=== PATIENT | female | born 1940 | race Caucasian/White ===

== ENCOUNTER 2016-08-24 15:08 | Inpatient (IN) ==
[2016-08-24] MEDS ORDERED: NS 1,000 ML IV ONE (15:47)
[2016-08-24] MEDS ORDERED: ATIVAN IV ONE (15:47)
[2016-08-24 16:37] LABS: AGAP 18; ALKALINE PHOSPHATASE 115 U/L (32-104); AMYLASE 88 U/L (20-200); BUN 16 mg/dL (8-22); CALCIUM 7.7 mg/dL (8.8-10.2); CHLORIDE 105 mmol/L (98-107); COSMO 288; GOT 33 U/L (10-30); GPT 30 U/L (10-36); LIPASE 29 U/L (13-60); POTASSIUM 2.8 mmol/L (3.5-5.1); SODIUM 143 mmol/L (136-145); TCO2 21 mmol/L (25-35); TOTAL PROTEIN 6.5 g/dL (6.3-8.3)
[2016-08-24] MEDS ORDERED: MAGNESIUM SULFATE 2 GM/S.W.I. 2 GM/50 ML IVPB IV ONE (16:37)
[2016-08-24] MEDS ORDERED: KLOR-CON PO ONE (16:37)
[2016-08-24 16:39] LABS: BASO% 0.1 % (0.0-0.8); HEMATOCRIT 34.8 % (37.0-47.0); HEMOGLOBIN 12.5 g/dL (12.0-16.0); IMM GRAN# 0.03 X1000 (0.0-0.04); IMM GRAN% 0.3 % (0.0-0.5); LYMPH# 0.65 X1000 (1.2-3.4); LYMPH% 6.1 % (20.5-51.1); MANUAL DIFF NEEDED? NO; MCH 32.7 PG (27-31); MCHC 35.9 g/dL (33-37); MCV 91.1 FL (81-99); MONO% 3.7 % (1.7-9.3); MPV 9.5 FL (7.4-10.4); NEUT% 89.8 % (42.2-75.2); PLT 197 X1000 (130-400); RBC 3.82 XMIL (4.2-5.4)
[2016-08-24 16:40] LABS: MAGNESIUM 0.7 mg/dL (1.5-2.7)
--- NOTE | 2016-08-24 16:54 | Diag Imaging Result Document ---
PROCEDURE NAME: FLAT/UPRIGHT ABD/1 VIEW CHEST - 08/24/2016 ACUTE ABDOMINAL SERIES: INDICATION: Nausea, vomiting, abdominal pain. FINDINGS: There is a right PICC catheter with its tip in the superior vena cava. There is cardiomegaly. No acute infiltrates or free air. There is a spinal cord stimulator device. There are surgical clips right upper quadrant and pelvis. The bowel gas pattern is nonobstructive. IMPRESSION: Nonspecific abdominal series.
--- NOTE | 2016-08-24 17:48 | PROVIDER DOCUMENTATION ---
This chart was entered by Shanna Veronica Scribe, acting as scribe for Santhosh Magallanes MD. HPI-General Adult - General Chief Complaint: Nausea/Vomiting Stated Complaint: vomting/withdrawal Time Seen by Provider: 08/24/16 15:24 Source: patient Allergies/Adverse Reactions: Patient Allergies Allergy/AdvReac Type Severity Reaction Status Date / Time codeine [Codeine] Allergy ITCHING Verified 08/24/16 15:13 Home Medications: Home Medication List Medication Instructions Recorded Confirmed Last Taken Type Alprazolam [Xanax] 0.5 mg PO TID #0 tablet 03/03/12 07/19/13 07/18/13 21:00 Rx Mirtazapine [Remeron] 30 mg PO QHS #0 tablet 03/03/12 07/19/13 07/18/13 21:00 Rx Omeprazole 20 mg PO DAILY #0 capsule. 03/03/12 07/19/13 07/19/13 07:00 Rx Ondansetron HCl [Zofran] 4 mg PO Q8H PRN PRN #0 tablet 03/03/12 07/19/13 21:00 Rx Diltiazem HCl [Cardizem] 120 mg PO BID #0 tablet 04/04/12 07/19/13 07/19/13 07: 00 Rx Furosemide [Lasix] 20 mg PO DAILY 05/23/12 07/19/13 07/19/13 07:00 History Diphenoxylate/Atropine [Lomotil] 1 each PO 3-4XDAY PRN PRN 07/19/13 07/19/13 07:00 History - History of Present Illness -Gen Adult Nature of Presenting Problems: 76 yof presents to ed with nausea and vomiting. Pt and daughter states she is going through withdrawal of morphine pump for chronic back pain that ended yesterday.Pt states she has taken suppository phenergan and was given zofran by amb and nothing is helping vomiting. Location of Pain/Injury: reports: abdomen Pain Radiation: reports: no radiation Quality of Pain: reports: aching Severity: reports: moderate Onset/Duration: reports: 24 hours ago Timing: reports: still present Context/Activities at Onset: reports: none Modifying Factors: improves with: nothing Associated Symptoms: reports: nausea, vomiting. denies: diarrhea Similar Symptoms Previously?: No Recently seen or treated by another doctor?: No Review of Systems - Adult - REVIEW OF SYSTEMS - ADULT Constitutional: reports: chills, fatique. denies: fever Eyes: reports: no symptoms reported Ears, Nose, Mouth & Throat: reports: no symptoms reported Cardiovascular: reports: no symptoms reported Respiratory: reports: no symptoms reported Gastrointestinal: reports: abdominal pain, nausea, vomiting Genitourinary: reports: no symptoms reported Musculoskeletal: reports: no symptoms reported Integumentary: reports: no symptoms reported Neurological: reports: no symptoms reported Psychiatric: reports: no symptoms reported Endocrine: reports: no symptoms reported Hematologic/Lymphatic: reports: no symptoms reported Allergic/Immunologic: reports: no symptoms reported All Other Systems: Reviewed and Negative Past History - Adult - PAST MEDICAL HISTORY-ADULT Review of Records: reports: Old Records Reviewed, Nursing Assessment Review Major Childhood Illnesses: reports: denies history Gastrointestinal: reports: cancer (colon) Other Conditions: reports: other cancer (skin) - PRIOR SURGERIES/PROCEDURES Surgical/Procedure History: reports: cholecystectomy, hysterectomy, other ( colon resection) - IMMUNIZATION STATUS Childhood Immunizations: See Nurse Assessment Flu Vaccine: See Nurse Assessment - SOCIAL HISTORY Smoking: non-smoker Living Situation: family Physical Exam-General - PHYSICAL EXAM-ADULT Initial Vital Signs Reviewed: Yes - CONSTITUTIONAL General Appearance: alert, mild distress - EYES Eyes: PERRL/EOMI, pink conjunctivae, fundi clear, no AV nicking - HEAD, EARS, NOSE, MOUTH & THROAT HENMT: normocephalic/atraumatic, moist mucous membranes, normal ENT inspection - NECK Neck: non-tender, full range of motion, supple, normal inspection - RESPIRATORY Respiratory: chest non-tender, lungs clear, normal breath sounds, no pleuratic chest pain, no respiratory distress, no accessory muscle use - CARDIOVASCULAR Cardiovascular: normal peripheral pulses, regular rate, rhythm, no edema, no gallop, no JVD, no murmur - GASTROINTESTINAL (ABDOMEN) Abdominal Exam: normal bowel sounds, soft, no organomegaly, no pulsatile mass, tenderness - LYMPHATIC Lymphatic: no adenopathy - MUSCULOSKELETAL Back Exam: normal inspection, no CVA tenderness, no vertebral tenderness Extremity: normal range of motion, normal inspection, no pedal edema, no calf tenderness, normal capillary refill, tenderness (abd general) - SKIN Integumentary: warm/dry, pallor - NEUROLOGIC 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: 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 nml as tested, grossly normal, no motor/sensory deficits - PSYCHIATRIC Psych/Mental Status: normal mood/affect, normal thought content, normal thought process, oriented x 3 Progress - PLAN OF CARE/RESULTS Progress/Plan/Lab Results: Vital Signs - 8 hr 08/24/16 15:11 Temperature 97.4 F L Pulse Rate 81 Respiratory Rate 17 Blood Pressure 149/60 O2 Sat by Pulse Oximetry 100 Orders Category Date Time Status Saline Loc DIRECTED Care 08/24/16 15:47 Active NPO Diet 08/24/16 15:47 Active FLAT/UPRIGHT ABD/1 VIEW CHEST [RAD] Stat Exams 08/24/16 15:47 Ordered AMYLASE [CHEM] Stat Lab 08/24/16 15:47 Ordered CBC WITH ELECTRONIC DIFF [HEME] Stat Lab 08/24/16 15:47 Ordered COMPREHENSIVE METABOLIC PANEL [CHEM] Stat Lab 08/24/16 15:47 Ordered LIPASE [CHEM] Stat Lab 08/24/16 15:47 Ordered MAGNESIUM [CHEM] Stat Lab 08/24/16 15:47 Ordered TROPONIN T Stat Lab 08/24/16 15:[address] W/POSS RFLX CULT [URINALYSIS] Stat Lab 08/24/16 15:47 Uncollected 0.9% Sodium Chloride Inj [Ns] 1,000 ml Med 08/24/16 15:47 Active IV 500 mls/hr Lorazepam [Ativan] Med 08/24/16 15:47 Discontinued 1 mg IV NOW ONE Result Diagrams: 08/24/16 15:55 08/24/16 15:55 - CONSULTS/PCP/HOSPITALIST Notification Time Discussed: 17:47 Reason/Comments: Admit to Dr. Stockton Consult Disposition: Admit Departure - Departure Time of Disposition Decision: 17:46 DIAGNOSIS: Narcotic withdrawal, Hypomagnesemia, Hypokalemia Disposition: ADMITTED INPATIENT 09 Certified Medical Emergency: Emergent Condition: Stable Referrals and Follow-Ups: Greta Singer MD [Primary Care Provider] - Attestation - Physician/ DAREN Attestation Patient care was provided by Advanced Practice Provider:: Yes Advanced Practice Provider:: Santhosh Magallanes Advanced Practice Provider documentation review:: The Mid-level provider documentation, treatment plan and medical decision making was reviewed by the physician who agrees with all treatment and medical decision making by the MLP. This chart was documented by the indicated scribe, (Shanna Veronica Scribe) and accurately reflects the services I performed and decisions made by me, Santhosh Magallanes MD, as attested by the provider's signature.
[2016-08-24 17:51] LABS: URINE CULTURE PL NEEDED? NO
[2016-08-24 17:52] LABS: BILIRUBIN URINE NEGATIVE (NEGATIVE); CLARITY CLEAR (CLEAR); COLOR YELLOW; GLUCOSE URINE NEGATIVE (NEGATIVE); URINE EPITHELIAL CELLS <10 /HPF (<10); URINE RBC <10 /HPF (<10); URINE SOURCE CATH; URINE WBC <10 /HPF (<10)
[2016-08-24 19:23] LABS: BLOOD URINE 1+ (NEGATIVE); LEUKOCYTES URINE 1+ (NEGATIVE); NITRITE URINE NEGATIVE (NEGATIVE); PROTEIN URINE TRACE mg/dL (NEGATIVE); UROBILINOGEN URINE NORMAL
[2016-08-25] MEDS: ZOFRAN IV PRN ×3 (00:12→11:39)
[2016-08-25 08:16] LABS: HEMATOCRIT 36.8 % (37.0-47.0); HEMOGLOBIN 13.3 g/dL (12.0-16.0); MCH 32.8 PG (27-31); MCHC 36.1 g/dL (33-37); MCV 90.6 FL (81-99); MPV 9.6 FL (7.4-10.4); RBC 4.06 XMIL (4.2-5.4)
[2016-08-25 08:55] LABS: AGAP 23; ALBUMIN 4.2 g/dL (3.5-5.0); ALKALINE PHOSPHATASE 133 U/L (32-104); BUN 10 mg/dL (8-22); CALCIUM 7.4 mg/dL (8.8-10.2); CHLORIDE 97 mmol/L (98-107); COSMO 276; GOT 65 U/L (10-30); GPT 39 U/L (10-36); SODIUM 138 mmol/L (136-145); TCO2 18 mmol/L (25-35); TOTAL PROTEIN 6.9 g/dL (6.3-8.3)
[2016-08-25 09:00] LABS: POTASSIUM 2.4 mmol/L (3.5-5.1)
--- NOTE | 2016-08-25 10:24 | HISTORY AND PHYSICAL ---
PRIMARY CARE PHYSICIAN: Dr. Singer CHIEF COMPLAINT: Nausea and vomiting. 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 She presented to the ER with nausea and vomiting stating that she was going through withdrawal as she has been on a morphine pump for 8 years and her pump evidently emptied and was supposed to be empty on the morning of the . She had been given fentanyl patches and she had actually started the patches in the morning prior to coming to the emergency room knowing that this was not take effect for quite some time. She does have chronic diarrhea and she stated that it was as usual. This had not changed. In the emergency room she was found to have a potassium of 2.8 with a magnesium of 0.7. She was supplemented and admitted for further evaluation and treatment. PAST MEDICAL HISTORY: Chronic back pain, colon cancer status post colon resection with a resulting short-bowel syndrome. Skin cancer. Chronic opioid use. PAST SURGICAL HISTORY: Cholecystectomy, hysterectomy, colon resection and back surgery. SOCIAL HISTORY: She denies alcohol, tobacco, or illicit drug use. She is . Lives with her . ALLERGIES: Codeine, which causes itching. HOME MEDICATIONS: Lasix 20 mg daily. Lomotil 1, 3-4 times a day as needed. Cardizem 120 b.i.d., Xanax 0.5 t.i.d., fentanyl patch 12 mcg every 72 hours, Oakley 7.5/325 q.8 hours p.r.n. Remeron 30 mg at bedtime. Omeprazole 20 daily. Zofran 4 q.8 hours p.r.n. REVIEW OF SYSTEMS: A 14 point review of systems is discussed with patient with pertinent positives stated in the HPI. She denies chest pain, palpitations, dizziness, syncope, cough, fever, chills, recent weight loss, weight gain, any night sweats, PND, orthopnea black or bloody vomitus, black or bloody stools, hematuria, dysuria, frequency, urgency. PHYSICAL EXAMINATION: GENERAL: A 76-year-old female, who is sitting in the bed, in no distress. VITAL SIGNS: Blood pressure is 146/63 with a heart rate of 91, respirations are 18, temperature is 98.4 degrees oral with a room air saturations of 98-100%. HEENT: Head is normocephalic, atraumatic. Pupils equal, round, react to light. EOMs are intact. Sclerae anicteric. Mucous membranes moist. NECK: Supple. Trachea midline. CARDIOVASCULAR: Regular rate and rhythm. S1, S2 appreciated. PULMONARY: Breath sounds are clear. No increased work of breathing noted. GASTROINTESTINAL: Abdomen is soft, nontender, nondistended with bowel sounds in all 4 quadrants. EXTREMITIES: No clubbing, cyanosis, or edema. Calves nontender. Pulses are palpable x4. NEUROLOGIC: She is alert and oriented x3. DIAGNOSTICS: WBC is 10.6 with a hemoglobin of 12.5, hematocrit 34.8, and platelets of 197,000. Sodium is 143, potassium 2.8, BUN 16, creatinine 0.7, with a magnesium is 0.7. Abdominal x-ray revealed a PICC line with its tip in the superior vena cava, cardiomegaly, no infiltrates or free air, spinal cord stimulator device in place. Bowel gas pattern is nonobstructive. ASSESSMENT AND PLAN: 1. Nausea and vomiting. Patient states this has resolved. She has been taking in liquids with no difficulty. We will advance her diet and monitor. 2. Hypokalemia. We will repeat her labs and replete as necessary. 3. Low magnesium. As stated above, we will repeat labs and replete as necessary. 4. Chronic opioid use. The patient states that she had been on morphine pump for 8 years and that it was supposed to empty the morning of the and she had started fentanyl patches at this time. She has also been placed on Oakley 7.5 q.8 hours a week prior to this in preparation. She does state that the Fentanyl is handling her pain and she is comfortable at this time. Dictated by MK Turner for Antonio Wilson MD cc: MK Turner MD
[2016-08-25] MEDS ORDERED: TYLENOL PO PRN (11:31)
[2016-08-25] MEDS ORDERED: NS 1,000 ML ONE (11:34)
[2016-08-25] MEDS ORDERED: POTASSIUM CHLORIDE 20 MEQ/SWI 20 MEQ/100 ML IVPB IV SCH (12:00)
[2016-08-25] MEDS ORDERED: ASPIRIN ONE (14:46)
--- NOTE | 2016-08-25 14:46 | EKG Report ---
Test Performed on : 08/25/2016 2:28:07 PM Test Reason : ST elevation Blood Pressure : / mmHG Vent. Rate : 090 BPM Atrial Rate : 090 BPM P-R Int : 122 ms QRS Dur : 084 ms QT Int : 450 ms P-R-T Axes : 060 083 086 degrees QTc Int : 550 ms Sinus rhythm. with premature atrial complexes. ST elevation, consider inferolateral injury or acute infarct Prolonged QT ACUTE ID / STEMI Consider right ventricular involvement in acute inferior infarct Abnormal ECG When compared with ECG of 29-AUG-2012 18:14, Significant changes have occurred Confirmed by Johnie Canada MD ([id number]) on 09/01/2016 10:15:19 PM
[2016-08-25 14:47] VITALS: BP 150/73
[2016-08-25] MEDS ORDERED: HEPARIN IV STA (14:48)
[2016-08-25 15:45] LABS: CK INDEX 6.8 (0.0-2.5); CK-MB 64.37 ng/mL (0.0-5.0)
[2016-08-26] MEDS ORDERED: KLOR-CON PO SCH (09:00)
--- NOTE | 2016-08-26 14:21 | DISCHARGE SUMMARY ---
ADMISSION DATE: 08/24/2016 DISCHARGE DATE: 08/25/2016 DIAGNOSES: 1. Inferior ST-elevation myocardial infarction. 2. Nausea and vomiting, resolved. 3. Hypokalemia. 4. Hypomagnesemia. 5. Chronic opioid use with recent change in medication dosing. DIAGNOSTICS: On 08/24/2016 chest x-ray revealed cardiomegaly with no acute infiltrates. Abdominal series revealed no free air. A spinal cord stimulator device is noted. Surgical clips in the right upper quadrant and pelvis with bowel-gas pattern, nonobstructive. HOSPITAL COURSE: Ms. Anaya presented to the emergency room complaining of nausea and vomiting throughout the day. She is a chronic opioid patient who has had a morphine pump for the last 8 or 9 years. Two weeks ago it was decided that she would discontinue morphine pump and go to fentanyl patches. In preparation she was given prescriptions for Dryden 7.5 which she could take 3 a day, this was for 15 days, and fentanyl patch. She stated that she did take the Dryden. She continued her Xanax and her other home medications. She did place the Fentanyl patch yesterday morning prior to coming to the emergency room. She felt that she was going through withdrawal. She was given a milligram of Ativan in the emergency room and she states that her nausea and vomiting resolved. She was found to have a magnesium of 0.7 and a potassium of 2.8. These were repleted in the emergency room. Repeat labs this morning revealed a potassium of 2.4 and a magnesium of 1.3. Potassium was repleted. The patient was feeling better. In fact, she was wanting to go home. At approximately 2:[address] the [address] room noticed [address] changes on her telemetry. The patient was complaining of chest tightness, some throat tightness, as well as left shoulder. EKG showed and acute STEMI with an acute inferior infarct with reciprocal changes in V1, 2, 3. Troponin was drawn at this time and was 1.100 with a CPK of 941 and a CK-MB of 64.3. At this time she was transferred to [facility] to the director of cath lab to undergo intervention. Blood pressures remained 140-160 over 60s and 70s. She remained in a sinus rhythm, 80s to 90s. Saturations remained 98-100 on room air, although she was supplemented with 2 L nasal cannula. Her was at her bedside and he did ride with the patient to [facility]. DISCHARGE PHYSICAL EXAMINATION: Cardiovascular: Regular rate and rhythm. S1 and S2 appreciated. Pulmonary: Breath sounds are clear with no increased work of breathing noted. Gastrointestinal: Abdomen is soft, nontender, nondistended with bowel sounds in all 4 quadrants. Extremities: No clubbing, cyanosis, or edema. Calves nontender. Pulses palpable x4. Of note, the patient does have a fentanyl patch on at present. We gave no further narcotics nor benzodiazepines. DISCHARGE MEDICATIONS: P.o. medicines have been held. She was completing the last of her 40 mEq potassium run via her PICC line. She was given heparin 5000 IV as well as she chewed 4 baby aspirin prior to transfer. She is being discharged for transfer to [facility] via EMS emergency transport. Dictated by MK Turner for Antonio Wilson MD cc: MK Turner MD
== END 2016-08-25 15:00 | disposition short-term general hospital (02) ==
LOC: P.ED 15:08 → P.MEDSURG 18:40 → SUATTDRO 18:40
PROVIDERS: ATTEND Family Medicine

== ENCOUNTER 2016-09-12 09:29 | Inpatient (IN) ==
[2016-09-12] MEDS ORDERED: PHENERGAN IV ONE (10:12)
[2016-09-12] MEDS ORDERED: SODIUM CHLORIDE 0.9% INJ ONE (10:12)
[2016-09-12 10:26] LABS: MANUAL DIFF NEEDED? NO
[2016-09-12 10:28] LABS: BASO% 0.3 % (0.0-0.8); EOS# 0.04 X1000 (0.0-0.7); EOS% 0.5 % (0.0-10.0); HEMATOCRIT 41.7 % (37.0-47.0); IMM GRAN# 0.02 X1000 (0.0-0.04); IMM GRAN% 0.3 % (0.0-0.5); LYMPH# 1.85 X1000 (1.2-3.4); LYMPH% 23.6 % (20.5-51.1); MCH 32.8 PG (27-31); MCV 91.2 FL (81-99); MONO# 0.77 X1000 (0.11-0.59); MONO% 9.8 % (1.7-9.3); MPV 9.5 FL (7.4-10.4); NEUT% 65.5 % (42.2-75.2); PLT 297 X1000 (130-400); RBC 4.57 XMIL (4.2-5.4)
[2016-09-12] MEDS ORDERED: NS 1,000 ML IV ONE ×2 (10:32→12:35)
[2016-09-12 10:51] LABS: ALBUMIN 3.7 g/dL (3.5-5.0); CALCIUM 9.1 mg/dL (8.8-10.2); POTASSIUM 3.9 mmol/L (3.5-5.1); TOTAL BILIRUBIN 0.61 mg/dL (0.20-1.00); TOTAL PROTEIN 6.6 g/dL (6.3-8.3)
[2016-09-12] MEDS ORDERED: NS IV ONE (11:46)
[2016-09-12] MEDS ORDERED: PROTONIX IV ONE (11:46)
[2016-09-12] MEDS ORDERED: CLINIMIX E 4.25%-5% SOLUTION 1,000 ML IV SCH (11:47)
[2016-09-12] MEDS ORDERED: PROTONIX 80 MG in NS 80 ML IV ONE (11:56)
[2016-09-12] MEDS: PROTONIX IV ONE ×2 (12:00→12:10)
[2016-09-12] MEDS: NS IV ONE ×2 (12:00→12:10)
--- NOTE | 2016-09-12 12:30 | Diag Imaging Result Document ---
PROCEDURE NAME: CHEST-2 VIEWS - 09/12/2016 COMPARISON: 08/24/2016. FINDINGS: The right PICC line is in stable position. The lungs are grossly clear. There is no definite pleural fluid collection. Cardiac silhouette and central vasculature are grossly unremarkable. IMPRESSION: Essentially stable chest. No evidence of acute pathology.
--- NOTE | 2016-09-12 12:30 | ED EKG INTERP ---
This chart was entered by Barbara Rausch Scribe, acting as scribe for Troy Yeager MD. EKG Interpretation - EKG Time of EKG reading by physician:: 11:46 EKG Read and Signed by:: Troy Yeager EKG Interpretation (*Must complete 3 of following elements*): Abnormal Rate: 98 Rhythm: NSR QRS: other (POSS LAE, ST&T WAVE ABNORMALITY, CONSIDER INFERIOR/ANTEROLATERAL ISCHEMIA) This chart was documented by the indicated scribe, (Barbara Rausch Scribe) and accurately reflects the services I performed and decisions made by me, Troy Yeager MD, as attested by the provider's signature.
--- NOTE | 2016-09-12 12:31 | Diag Imaging Result Document ---
PROCEDURE NAME: ABDOMEN FLAT/UPRIGHT - 09/12/2016 COMPARISON: 08/24/2016. FINDINGS: There are nonspecific bowel gas and stool patterns. There are few mildly distended loops of what appear to be small bowel. Consider ileus versus low-grade partial obstruction. There are multiple metallic clips projecting over the lower abdomen and pelvis, as well as the right upper quadrant. A spinal stimulator device projects over the left lower quadrant. There is no evidence of large-volume free abdominal gas. There is no definite organomegaly. IMPRESSION: Nonspecific abdomen as detailed above.
[2016-09-12] MEDS ORDERED: NS 1,000 ML IV PRN ×2 (12:35→17:14)
--- NOTE | 2016-09-12 12:35 | PROVIDER DOCUMENTATION ---
This chart was entered by Barbara Rausch Scribe, acting as scribe for Troy Yeager MD. HPI-General Adult - General Chief Complaint: General Adult Stated Complaint: unable to eat Time Seen by Provider: 09/12/16 09:56 Source: patient Allergies/Adverse Reactions: Patient Allergies Allergy/AdvReac Type Severity Reaction Status Date / Time codeine [Codeine] Allergy ITCHING Verified 08/24/16 15:13 Home Medications: Home Medication List Medication Instructions Recorded Confirmed Last Taken Type Alprazolam [Xanax Xr] 0.5 mg PO DAILY 09/12/16 09/12/16 09/11/16 07:00 History 0.5 MG Aspirin [Ecotrin] 325 mg PO DAILY 09/12/16 09/12/16 09/12/16 07:00 History 325 MG Carvedilol 3.125 mg PO DAILY 09/12/16 09/12/16 09/11/16 07:00 History 3.125 MG Dicyclomine [Bentyl] 10 mg PO TID 09/12/16 09/12/16 09/11/16 20:00 History 10 MG Digoxin 125 mcg PO DAILY 09/12/16 09/12/16 09/11/16 07:00 History 125 MCG Duloxetine [Cymbalta] 30 mg PO DAILY 09/12/16 09/12/16 09/11/16 07:00 History 30 MG Fentanyl 12 Microgm/Hr Patch 1 each TD Q72H 09/12/16 09/12/16 09/09/16 History [Duragesic 12 Microgm/Hr Patch] 12 MCG Lisinopril 5 mg PO DAILY 09/12/16 09/12/16 09/11/16 07:00 History 5 MG Mirtazapine 30 mg PO HS 09/12/16 09/12/16 09/11/16 20:00 History 30 MG Spironolactone 25 mg PO DAILY 09/12/16 09/12/16 09/11/16 07:00 History 25 MG Sucralfate 1 gm PO TID 09/12/16 09/12/16 09/11/16 20:00 History 1 GM - History of Present Illness -Gen Adult Nature of Presenting Problems: PT IS A 76YOF PRESENTING TO THE ED C/O NAUSEA. PT STATES SHE WAS ADMITTED BC HER PCP TOOK HER OFF THE TPN AND SHE LOST AN ADDITIONAL 15-20 LBS. PT STATES SHE WAS ADMITTED RECENTLY DUE TO NARCOTIC WITHDRAWS AFTER HER DR REMOVED HER MORPHINE PAIN PUMP FOR CHRONIC BACK PAIN AND PUT HER ON FENTYNOL PATCH. PT STATES NAUSEA FOR OVER A WEEK, ANOREXIA AND INCREASED WEAKNESS. NO OTHER COMPLAINTS AT THIS TIME BUT PT IS WITH HOLDING HER MEDICAL HISTORY UNTIL SPECIFICALLY ASKED ABOUT IT. Location of Pain/Injury: reports: generalized Pain Radiation: reports: no radiation Quality of Pain: reports: aching Severity: reports: moderate Onset/Duration: reports: 1 week ago Timing: reports: still present Context/Activities at Onset: reports: light activity Modifying Factors: improves with: nothing Associated Symptoms: reports: anxiety, back/neck pain (CHRONIC BACK PAIN), fatigue, loss of appetite, malaise, nausea, weakness, trouble walking. denies: arm pain, chest pain, constipation, diarrhea, shortness of breath, swelling/ mass in abdomen, syncope Similar Symptoms Previously?: Yes Recently seen or treated by another doctor?: Yes (ADMITTED TO [facility]) Review of Systems - Adult - REVIEW OF SYSTEMS - ADULT Constitutional: reports: see HPI, chills, fatique, weight loss. denies: fever Eyes: reports: no symptoms reported Ears, Nose, Mouth & Throat: reports: no symptoms reported Cardiovascular: reports: no symptoms reported Respiratory: reports: no symptoms reported Gastrointestinal: reports: see HPI, nausea, poor appetite. denies: abdominal pain, constipation, diarrhea, vomiting Genitourinary: reports: no symptoms reported Musculoskeletal: reports: no symptoms reported Integumentary: reports: no symptoms reported Neurological: reports: no symptoms reported Psychiatric: reports: see HPI, anxiety, alcohol/drug dependence, depression, insomnia. denies: suicidal thoughts Endocrine: reports: no symptoms reported Hematologic/Lymphatic: reports: no symptoms reported Allergic/Immunologic: reports: no symptoms reported All Other Systems: Reviewed and Negative Past History - Adult - PAST MEDICAL HISTORY-ADULT Review of Records: reports: Old Records Reviewed, Nursing Assessment Review, Medications Reviewed, Social history reviewed & non-contributory. Major Childhood Illnesses: reports: denies history Cardiovascular: reports: denies history Respiratory: reports: denies history Gastrointestinal: reports: cancer (colon) Obstetrical/Gynecological: reports: denies history Genitourinary: reports: denies history Musculoskeletal: reports: denies history Neurological: reports: denies history Endocrine/Immune: reports: denies history Other Conditions: reports: other cancer (skin) - PRIOR SURGERIES/PROCEDURES Surgical/Procedure History: reports: cholecystectomy, hysterectomy, other ( colon resection) - IMMUNIZATION STATUS Childhood Immunizations: See Nurse Assessment Flu Vaccine: See Nurse Assessment - FAMILY HISTORY Family History: reviewed, not pertinent - SOCIAL HISTORY Smoking: denies, non-smoker Substance Use: none/never, denies Alcohol Use Frequency: never Living Situation: family Physical Exam-General - PHYSICAL EXAM-ADULT Initial Vital Signs Reviewed: Yes - CONSTITUTIONAL General Appearance: appears well, alert, mild distress, thin, anxious. negative : no apparent distress - EYES Eyes: PERRL/EOMI, pink conjunctivae - HEAD, EARS, NOSE, MOUTH & THROAT HENMT: normocephalic/atraumatic, moist mucous membranes, normal ENT inspection, TMs normal, pharynx normal - NECK Neck: non-tender, full range of motion, supple, normal inspection - RESPIRATORY Respiratory: chest non-tender, lungs clear, normal breath sounds, no pleuratic chest pain, no respiratory distress, no accessory muscle use - CARDIOVASCULAR Cardiovascular: normal peripheral pulses, no edema, no gallop, no JVD, no murmur , tachycardia. negative: regular rate, rhythm - GASTROINTESTINAL (ABDOMEN) Abdominal Exam: normal bowel sounds (VERY ACTIVE), non tender, soft, no organomegaly, no pulsatile mass - LYMPHATIC Lymphatic: no adenopathy - MUSCULOSKELETAL Back Exam: normal inspection, no CVA tenderness, no vertebral tenderness Extremity: non-tender, no pedal edema, no calf tenderness, normal capillary refill, pelvis stable. negative: normal range of motion, normal gait, normal inspection - SKIN Integumentary: normal turgor, warm/dry, pallor. 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 negative: normal mood/affect Progress - PLAN OF CARE/RESULTS Progress/Plan/Lab Results: Vital Signs - 8 hr 09/12/16 09:32 Temperature 97.8 F Pulse Rate 104 H Respiratory Rate 18 Blood Pressure 127/72 O2 Sat by Pulse Oximetry 98 Orders Category Date Time Status Misc. NRS Communication Order DIRECTED Care 09/12/16 10:12 Active CBC WITH ELECTRONIC DIFF [HEME] Stat Lab 09/12/16 10:10 Uncollected CMP [COMPREHENSIVE METABOLIC PANEL] [CHEM] Stat Lab 09/12/16 10:11 Uncollected UA NIMS W/REFLEX CULT [URINALYSIS] Stat Lab 09/12/16 10:11 Uncollected Promethazine [Phenergan] Med 09/12/16 10:12 Discontinued 12.5 mg IV NOW ONE Sodium Chloride 0.9% Med 09/12/16 10:12 Discontinued 10 ml INJ NOW ONE Result Diagrams: 09/12/16 10:00 09/12/16 10:00 - XRAY 1 XRAY: Bilateral XRAY Study: Chest, Abdomen (PAIN PUMP IMPLANT NOTED OTHERWISE UNREMARKABLE) - CONSULTS/PCP/HOSPITALIST Notification #1 *Consult/PCP/Hospitalist*: NYDIA Time Discussed: 11:53 Consult Disposition: Admit (ACCEPTED PT ADMISSION TO HOSPITALIST) Departure - Departure Time of Disposition Decision: 12:31 DIAGNOSIS: Narcotic withdrawal, SGS (short gut syndrome), Anorexia Myocarditis Qualifiers: Myocarditis type: idiopathic Chronicity: subacute Qualified Code(s): 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 Chronic pain Qualifiers: Chronic pain type: chronic pain syndrome Qualified Code(s): G89.4 - Chronic pain syndrome Vomiting Qualifiers: Vomiting type: unspecified Vomiting Intractability: intractable Nausea presence : with nausea Qualified Code(s): R11.2 - Nausea with vomiting, unspecified Disposition: ADMITTED INPATIENT 09 Certified Medical Emergency: Emergent Condition: Fair Referrals and Follow-Ups: Greta Singer MD [Primary Care Provider] - - Critical Care Note This patient required my direct & personal management of CC.: No This chart was documented by the indicated scribe, (Barbara Rausch Scribe) and accurately reflects the services I performed and decisions made by me, Troy Yeager MD, as attested by the provider's signature.
[2016-09-12] MEDS ORDERED: DURAGESIC 12 MICROGM/HR PATCH TD SCH (16:30)
[2016-09-12] MEDS ORDERED: BENTYL PO SCH (17:00)
[2016-09-12] MEDS: CLINIMIX E 4.25%-5% SOLUTION 1,000 ML IV SCH (17:02)
[2016-09-12] MEDS ORDERED: BENTYL PO PRN (17:14)
[2016-09-12] MEDS ORDERED: ZOFRAN IV PRN (17:15)
[2016-09-12] MEDS: CARAFATE PO SCH (18:05)
--- NOTE | 2016-09-12 18:18 | HISTORY AND PHYSICAL ---
CHIEF COMPLAINT: Intractable nausea and vomiting. HISTORY OF PRESENT ILLNESS: Ms. Anaya is a 76-year-old, female, patient of Dr. Singer with multiple medical problems, not doing well the last 2 weeks. The patient had significant nausea, at times vomiting, not able to keep anything by mouth. According to patient she lost 12- 15 pounds of weight over a month. The patient claimed every time she tries to eat she gets nauseous and at times vomiting. The patient also had some diarrhea. The patient was admitted to [facility]. At that time, her EKG showed ST elevation. The patient was sent to [facility]. She had workup done, told to have myocarditis and the patient was started on Lanoxin. Patient claims her nausea is more since she is on Lanoxin. The patient denied any typical chest pain, palpitation. Patient evaluated in the ER. Because of her intractable nausea, vomiting. Not responding to outpatient treatment. The patient was taking Zofran, but it was not helping. The patient was not able to take anything by mouth. She was losing weight. She did have clinical dehydration. We decided to admit the patient for further care, inpatient hydration and parenteral nutrition. The patient was on TPN as an outpatient before, which was discontinued about a month ago. 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 Patient does have chronic back pain. She had pain pump, but it is not functioning. Patient is on Duragesic patch. The patient claims it is not helping and she did not want me to change her fentanyl patch today. She denied any dysuria or hematuria. No blood or mucus in the stool. No hematemesis or melena. The patient claims she had upper GI endoscope done in [place] and she was told to have ulcer in her stomach. I do not have details. We are going to get records from [facility]. No heat or cold intolerance. She denied polyuria or polydipsia. Patient was feeling weak and tired. At times, situational depression. No further history available at this time. ALLERGIES: Codeine. PAST MEDICAL HISTORY: Significant for colon cancer, status post colon resection. Patient had Jhonatan's requiring multiple surgeries. Chronic back pain. The patient had a pain pump. Skin cancer. Chronic opioid use. Hypertension. Situational depression. PAST SURGICAL HISTORY: Patient had cholecystectomy, hysterectomy, colon resection and back surgery. PERSONAL HISTORY: Patient is . Lives with her . Denied alcohol or substance abuse. HOME MEDICATION: Patient is on Lanoxin, Xanax, aspirin, Coreg, Bentyl, Cymbalta, Duragesic patch, lisinopril, Remeron, Aldactone, Carafate. FAMILY HISTORY: Noncontributory. PHYSICAL EXAMINATION: GENERAL: Elderly white female patient in mild distress. VITAL SIGNS: In the emergency room, blood pressure 127/72, pulse 104, respiration 18, temperature 97.8 degrees. SKIN: Dry turgor. No rash or petechiae. HEENT: Head atraumatic, normocephalic. Pale conjunctivae. Anicteric sclerae. Extraocular muscle movement normal. Fundus cannot be penetrated. Good oral hygiene. Dry oral mucosa. No tonsillopharyngeal congestion or exudate. Ears and nose benign. NECK: Supple. No JVD, thyromegaly or lymphadenopathy. CHEST: Bilateral good air entry present. No rales or rhonchi. CARDIOVASCULAR: S1 and S2 heard. No gallop or thrill. ABDOMEN: Soft. Mild epigastric tenderness. No guarding or rigidity. Patient does have her pain pump in the left lower quadrant. EXTREMITIES: No cyanosis, clubbing. No acute DVT. 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 Tenderness lumbosacral spine. LABORATORY DATA/X-RAY: Revealed hemoglobin 15, hematocrit 41.7. Platelet count 297,000. WBC count 7.85, BUN 39, creatinine 1.4. The rest of the electrolytes were benign. Lanoxin level was 1.4. Patient chest x-ray was stable chest. Abdominal x-ray results reviewed. CONSIDERATION: Intractable nausea and vomiting. Peptic ulcer disease. Weight loss. Chronic pain. Hypertension. Short-bowel syndrome. Chronic low back pain. Situational depression. PLAN: I am going to discontinue her Lanoxin. Patient wants me to hold her Duragesic patch. Gentle hydration. We will start her on Clinimix. We will treat her nausea with IV Zofran, DVT and GI prophylaxis. Fall precaution. Overall plan discussed with the patient and and they are in agreement. Dr. Singer will resume care from tomorrow morning. cc: MD Charles Morgan MD
[2016-09-12] MEDS: REMERON PO SCH (21:05)
[2016-09-12] MEDS: XANAX XR PO SCH (21:05)
[2016-09-13 06:10] LABS: MANUAL DIFF NEEDED? NO
[2016-09-13 06:43] LABS: BASO% 0.9 % (0.0-0.8); EOS% 1.7 % (0.0-10.0); HEMATOCRIT 32.4 % (37.0-47.0); HEMOGLOBIN 11.4 g/dL (12.0-16.0); LYMPH# 2.93 X1000 (1.2-3.4); LYMPH% 50.3 % (20.5-51.1); MCH 32.8 PG (27-31); MCHC 35.2 g/dL (33-37); MCV 93.1 FL (81-99); MONO# 0.56 X1000 (0.11-0.59); MONO% 9.6 % (1.7-9.3); MPV 9.8 FL (7.4-10.4); NEUT% 37.5 % (42.2-75.2); PLT 188 X1000 (130-400); RBC 3.48 XMIL (4.2-5.4)
[2016-09-13 06:45] LABS: AGAP 9; ALBUMIN 2.9 g/dL (3.5-5.0); ALKALINE PHOSPHATASE 61 U/L (32-104); BUN 38 mg/dL (8-22); CALCIUM 8.3 mg/dL (8.8-10.2); CHLORIDE 105 mmol/L (98-107); COSMO 283; GOT 36 U/L (10-30); GPT 15 U/L (10-36); POTASSIUM 3.6 mmol/L (3.5-5.1); SODIUM 137 mmol/L (136-145); TCO2 23 mmol/L (25-35); TOTAL BILIRUBIN 0.39 mg/dL (0.20-1.00); TOTAL PROTEIN 5.2 g/dL (6.3-8.3)
[2016-09-13] MEDS: PRINIVIL PO SCH (08:15)
[2016-09-13] MEDS: COREG PO SCH (08:15)
[2016-09-13] MEDS: ALDACTONE PO SCH (08:15)
[2016-09-13] MEDS ORDERED: MAGNESIUM SULFATE 2 GM/S.W.I. 2 GM/50 ML IVPB IV ONE (08:55)
[2016-09-13] MEDS ORDERED: ASPIRIN EC PO SCH (09:00)
[2016-09-13] MEDS ORDERED: XANAX XR PO SCH (09:00)
--- NOTE | 2016-09-13 09:33 | PROGRESS NOTE ---
DATE: 09/13/2016 SUBJECTIVE: A 76-year-old white female admitted to the hospital with abdominal pain, nausea, vomiting. X-rays reviewed, possible bowel obstruction. She was also seen in [facility] recently with possible inferior wall LA. Left heart catheterization was negative. She was treated for myocarditis. She has a history of short-bowel syndrome and outpatient TPN was on hold. REVIEW OF SYSTEMS: No headache. No vision problems.Neck: No goiter. No lymphadenopathy. No bruit. Cardiopulmonary: No chest pain, shortness of breath, PND, orthopnea. GI: Had a BM this morning. Decreased belly pain. No swelling of legs. OBJECTIVE: Vital signs: She is afebrile. Blood pressure is on the low side at 90/40. Pulse oximetry 98% on room air. HEENT: Within normal limits. Neck: Supple. No lymphadenopathy. No goiter. Chest: Clear. Heart: Sounds are regular. PICC line on the right side present and she also had pain pump which is empty. Abdomen: Belly is soft. Good bowel sounds. Extremities: No peripheral edema, cyanosis, clubbing. Neurologic: Nonfocal. INVESTIGATIONS: White cell count 5.8, hematocrit 32, platelets 180,000, SMA 7 is normal. LFTs were normal. Magnesium is 1.3. Folate 1.2. Digoxin level 1.4. Abdominal x-ray and chest x-ray were reviewed. Nothing acute in the chest. Possible bowel obstruction. ASSESSMENT AND PLAN: 1. Abdominal pain due to bowel obstruction, resolving. Advanced diet and see how she does. 2. Myocarditis. Negative left heart catheterization recently. Stable. Continue on Coreg, lisinopril. 3. Short-bowel syndrome. We will resume the outpatient TPN. Consult [facility]. In the meantime continue IV Clinimix. 4. Hypomagnesemia. Mag sulfate 2 mg 1 dose. 5. Chronic insomnia. On Remeron. 6. Acid reflux disease. On IV Protonix. We will follow up. LEVEL OF DOCUMENTATION: 35 minutes. cc: Charles Singer MD
[2016-09-13] MEDS: CLINIMIX E 4.25%-5% SOLUTION 1,000 ML IV SCH (09:52)
[2016-09-13] MEDS: CARAFATE PO SCH ×4 (09:52→16:48)
[2016-09-13] MEDS: CYMBALTA PO SCH (09:52)
[2016-09-13] MEDS: XANAX XR PO SCH ×2 (09:57→19:59)
[2016-09-13] MEDS: PROTONIX IV SCH (11:57)
[2016-09-13] MEDS: SODIUM CHLORIDE 0.9% INJ SCH (11:57)
[2016-09-13] MEDS: REMERON PO SCH (19:59)
[2016-09-14] MEDS: CLINIMIX E 4.25%-5% SOLUTION 1,000 ML IV SCH ×3 (00:19→17:17)
[2016-09-14] MEDS ORDERED: HALL'S COUGH LOZENGE MT PRN (01:26)
--- NOTE | 2016-09-14 09:11 | PROGRESS NOTE ---
DATE: 09/14/2016 SUBJECTIVE: The patient is out of bed. Walking very well. No chest pain. Patient is tolerating the diet very well. No nausea, vomiting, or obstipation. In fact, she had two loose bowel movements. REVIEW OF SYSTEMS: None reported. PHYSICAL EXAMINATION: Vital Signs: Stable. Weight 98 pounds. HEENT Examination: Within normal limits. Neck: Supple. Chest: Clear. Heart: Heart sounds are regular. Abdomen: Belly is soft, nontender. Good bowel sounds. ASSESSMENT AND PLAN: 1. Myocarditis, stable. 2. Short-bowel syndrome. We will go resume the total parenteral nutrition protocol by [facility]. 3. Small-bowel obstruction. Obstipation resolving. If she continues to improve, we will discharge home in the morning. 4. Continue the present medical treatment. 5. Level of documentation is 25 minutes. cc: Charles Singer MD
[2016-09-14] MEDS: ALDACTONE PO SCH ×2 (09:27→09:28)
[2016-09-14] MEDS: COREG PO SCH (09:27)
[2016-09-14] MEDS: PRINIVIL PO SCH (09:27)
[2016-09-14] MEDS: CYMBALTA PO SCH (09:28)
[2016-09-14] MEDS: CARAFATE PO SCH ×4 (09:29→16:46)
[2016-09-14] MEDS: XANAX XR PO SCH ×2 (09:31→22:20)
[2016-09-14] MEDS: PROTONIX IV SCH (11:42)
[2016-09-14] MEDS: SODIUM CHLORIDE 0.9% INJ SCH (11:42)
[2016-09-14] MEDS: REMERON PO SCH (22:20)
[2016-09-15 08:23] VITALS: BP 119/61
[2016-09-15] MEDS: CYMBALTA PO SCH (09:05)
[2016-09-15] MEDS: CARAFATE PO SCH (09:05)
--- NOTE | 2016-09-16 19:04 | DISCHARGE SUMMARY ---
ADMISSION DATE: 09/12/2016 DISCHARGE DATE: 09/15/2016 DISCHARGING DIAGNOSES: Abdominal pain due to subacute bowel obstruction. SECONDARY DIAGNOSES: 1. Short-bowel syndrome on IV total parenteral nutrition. 2. Chronic pain under the care of Dr. Knott on fentanyl patch. 3. Myocarditis. Recently was seen in [facility]. 4. Chronic anxiety/depression. 5. Other problems: PICC line on the right side. 6. Pain pump was not using. BRIEF HISTORY: Please see the H and P that was done by Dr. Price Peters. In brief, she is a 76-year-old, pleasant, white female, with extensive colon resection for colon cancer. Presented with short-bowel syndrome on IV TPN by [facility]. Recently admitted to [facility] for elevated ST in inferior wall, suspicious for HI. Subsequently, left heart catheterization did not show any obstructive lesions. She is being treated with myocarditis. She came in with abdominal pain, nausea, vomiting, obstipation. Initial x-rays revealed possible obstruction. HOSPITAL COURSE: Patient was given IV fluids and symptomatic treatment and she started passing flatus, and able to tolerate the diet very well. She did not require any surgical consult. The patient is stable. LABS: At the time of discharge, the labs are as follows CBC: White cell count 5.8, hematocrit 32, platelets 188. SMA-7, sodium 137, potassium 3.6, chloride 105, BUN 38, creatinine 0.8. LFTs were normal. Dig level is 1.4. DISCHARGE INSTRUCTIONS: Resume total parenteral nutrition care by [facility]. Duloxetine 30 mg daily, Coreg 3.125 daily. Fentanyl patch 12 mcg every [address] Knott. Lanoxin 125 mcg daily. Xanax 0.5 daily. Remeron 30 daily. Aldactone 25 daily, Lisinopril 5 mg daily, aspirin 325 daily. Bentyl as needed for diarrhea. Follow up in my office next week. We will also will review the reports from [facility]. cc: Charles Singer MD
== END 2016-09-15 11:29 | disposition home health service (06) ==
LOC: ED 09:29 → 4N 13:31
PROVIDERS: ADMIT Internal Medicine; ATTEND Internal Medicine

== ENCOUNTER 2019-05-22 10:17 | Inpatient (IN) ==
[2019-05-22] MEDS ORDERED: PNEUMOVAX 23 IM ONE (14:16)
--- NOTE | 2019-05-22 14:27 | EKG Report ---
Test Performed on : 05/22/2019 2:20:24 PM Test Reason : chest pain Blood Pressure : / mmHG Vent. Rate : 072 BPM Atrial Rate : 072 BPM P-R Int : 188 ms QRS Dur : 090 ms QT Int : 414 ms P-R-T Axes : 039 050 -44 degrees QTc Int : 453 ms Normal sinus rhythm. ST & T wave abnormality, consider inferior ischemia ST & T wave abnormality, consider anterior ischemia Abnormal ECG When compared with ECG of 21-OCT-2017 13:20, T wave inversion more evident in Inferior leads T wave inversion now evident in Anterior leads Confirmed by Dominic IGLESIAS, Zoran Araya ([id number]) on 05/22/2019 6:16:12 PM
[2019-05-22 14:49] LABS: HEMATOCRIT 31.5 % (37.0-47.0); HEMOGLOBIN 9.7 g/dL (12.0-16.0); MCH 28.5 PG (27-31); MCHC 30.8 g/dL (33-37); MCV 92.6 FL (81-99); MPV 9.8 FL (7.4-10.4); RBC 3.4 XMIL (4.2-5.4); RDW 13.5 % (11.5-14.5); WBC 10.08 X1000 (4.8-10.8)
[2019-05-22 15:06] LABS: CALCIUM 8.7 mg/dL (8.8-10.2); CREATININE 1.4 mg/dL (0.5-0.9); POTASSIUM 3.9 mmol/L (3.5-5.1)
--- NOTE | 2019-05-22 16:37 | Diag Imaging Result Doc PS360 ---
EXAM: CT ABD/PELVIS W/IV CONT ONLY 05/22/2019 HISTORY: Abdominal pain TECHNIQUE: This exam was performed using automated exposure control, adjustment of mA or kV according to patient size, and/or use of iterative reconstruction technique. COMMENT: The current study is compared with the previous examination of 11/19/2011. There are some fibrotic opacities in the right middle lobe which were present previously as well as a calcified granuloma. There is dependent atelectasis in both lower lobes. There is a pericardial effusion which was not present at the time the previous study and which measures up to 7 mm anteriorly over the left atrium. The adrenal glands are not enlarged. There are multiple granulomata in the spleen. There is a 8 to 9 mm cyst in the left hepatic lobe which was also present at the time the previous study. The adrenal glands are not enlarged. There is a multilocular cystic mass in the head of the pancreas. This is larger than on the previous examination at which time it measured 14 mm in anterior posterior dimension versus 2.8 cm today. There is mild dilatation of the distal pancreatic duct to 4 mm. There has been cholecystectomy. The distal common bile duct measures 7 mm in diameter. There are some cysts in the right kidney. There is no evidence of hydronephrosis. There is some stool in the colon. The stomach is not distended. There has been previous colonic resection as well as appendectomy. There is stool in the rectum. The small bowel is not particularly distended. The aorta is not distended. There is no evidence of significant adenopathy. The urinary bladder is not distended. There is some generalized osteopenia and there are postsurgical changes and degenerative disc changes in the lumbar spine. IMPRESSION: 1. 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 Further evaluation with MRI may be desirable. 2. Constipation. 3. Pericardial effusion. Electronically signed by Ta Huff 05/22/2019 4:35 PM
[2019-05-22 18:28] LABS: URINE SOURCE CLEAN CATCH
[2019-05-22 18:35] LABS: BILIRUBIN URINE NEGATIVE (NEGATIVE); BLOOD URINE SMALL (NEGATIVE); COLOR YELLOW; GLUCOSE URINE NEGATIVE (NEGATIVE); KETONE URINE NEGATIVE (NEGATIVE); LEUKOCYTES URINE MODERATE (NEGATIVE); NITRITE URINE NEGATIVE (NEGATIVE); PROTEIN URINE 30 mg/dL (NEGATIVE); SP GRAVITY URINE 1.048; TURBIDITY URINE CLEAR (CLEAR); UROBILINOGEN URINE NORMAL (NORMAL)
[2019-05-22 18:39] LABS: UR EPITHELIAL CELLS <10 /HPF (<10); URINE BACTERIA NEGATIVE /HPF; URINE WBC 20-40 /HPF (<10)
[2019-05-22 18:45] LABS: URINE CASTS NONE SEEN; URINE YEAST NONE SEEN
[2019-05-22 18:46] LABS: URINE CRYSTALS CA OXALATE PRESENT; URINE SMALL ROUND CELLS TRANS PRESENT
--- NOTE | 2019-05-22 21:22 | GASTROENTEROLOGY CONSULTATION ---
DATE: 05/22/2019 REASON FOR CONSULTATION: Abdominal pain. HISTORY OF PRESENT ILLNESS: This is a 79-year-old female known to our practice. She follows with Dr. Singer. She had seen him yesterday in the office. She had some recent breathing issues that she related to her congestive heart failure. She states she was seen at the clinic through Dr. Singer. She was found to have anemia, which she has had in the past. She denies any visible bright red blood in the stool but has noticed some dark stool on occasion. She reports weakness. She had some shortness of breath and chest pain but that has improved. She has denied dizziness or lightheadedness. She reports periodic abdominal pain. She does have a pain pump to the left lower quadrant. She states periodically she will have a knot come up around the pain pump site. It moves around and comes and goes. She had abdominal pelvis CT scan this admission that showed an apparent cystic neoplasm of the pancreatic head, constipation and pericardial effusion. Her hemoglobin and hematocrit on admission were 9.7 and 31.5, iron 24. PAST MEDICAL HISTORY: Colon cancer diagnosis in 1998, history of colectomy, history of heart disease and history of myocardial infarction, history of congestive heart failure, stroke. PAST SURGICAL HISTORY: History of colectomy, back surgery, cholecystectomy, hysterectomy. Last EGD and colonoscopy were in July of 2017 with findings of normal EGD, noted surgical changes and anal stenosis with dilation performed. She also has a pain pump at the left lower quadrant. ALLERGIES: Codeine causing itching. HOME MEDICATIONS: Carvedilol 6.25 mg twice a day, digoxin 125 mcg daily, Cymbalta 60 mg daily, ezetimibe/simvastatin 10/40 mg every night, Gabapentin 300 mg twice a day, mirtazapine 30 mg every night, Prilosec twice daily, Zofran as needed, Crivitz 5/325 three times a day, spironolactone 25 mg daily, Gattex 5 mg subcutaneous daily. SOCIAL HISTORY: She is . She has 1 child living and 3 . No alcohol or tobacco use. She quit tobacco use. REVIEW OF SYSTEMS: Per history of present illness. PHYSICAL EXAMINATION: Vital Signs: Temperature 97.9 degrees, pulse 73, respirations 17, blood pressure 113/43. General: Patient was awake and alert in no acute distress. HEENT: Normocephalic, atraumatic. Pupils equal, round, and reactive to light. Sclerae nonicteric. Respiratory: Lung sounds essentially clear. Abdomen: With a midline scar from her history of colon resection. She has a pain pump to the left lower quadrant. No elicited abdominal pain with palpation. Bowel sounds present. Extremities: No lower extremity edema noted. Neurological: Cranial nerves 2 through 12 grossly intact. Patient is awake, and alert, oriented to person, place, and time. DIAGNOSTIC RESULTS: Laboratory: Hematology: WBC 10.08, hemoglobin 9.7, hematocrit 31.5. Chemistry: Sodium 139, potassium 3.9, chloride 95, CO2 29, BUN 16, creatinine 1.1, glucose 98, calcium 8.7, iron 24, TIBC 283, ferritin 120, folate 24.4. Imaging: Abdominal pelvis CT scan showed apparent cystic neoplasm of the pancreatic head, constipation and pericardial effusion. ASSESSMENT: 1. Abdominal pain. 2. Anemia. 3. Abnormal CT scan showing questionable cystic neoplasm of the pancreatic head. PLAN: Get CA 19-9. Patient may need MRI of abdomen for further evaluation. Proceed with EGD for evaluation of anemia. I have gone over the benefits versus risks of EGD procedure and patient wishes to proceed. I have discussed this case with Dr. Acuna, and further plans will be made according to findings. Thank you for this consultation. Dictated by MK Catsaneda for Ryan Acuna MD cc: MK Monson MD Jagan Reddy, MD [facility]
[2019-05-22] MEDS: ZETIA PO SCH (21:55)
[2019-05-22] MEDS: ZOCOR PO SCH (21:55)
[2019-05-22] MEDS: REMERON PO SCH (21:55)
[2019-05-22] MEDS: NEURONTIN PO SCH (21:55)
--- NOTE | 2019-05-22 23:04 | HISTORY AND PHYSICAL ---
CHIEF COMPLAINT: 1. Shortness of breath. 2. Fatigue. 3. Upper abdominal pain. 4. Swelling of legs. HISTORY OF PRESENT ILLNESS: She is a 79-year-old white female who came in my office on Tuesday with the above symptoms. Chest x-ray showed cardiomegaly with pleural effusion on the right side. She also has intermittent atrial fibrillation. She is on Coumadin under the care of Dr. Khoury. She was given Lasix. CBC showed hemoglobin 7, hematocrit 24. The patient refused to go to the hospital, and then came back on Tuesday. Symptoms of breathing are better, however, continues to have some abdominal pain, fatigue and weakness. She has a pain pump in the left lower quadrant. Repeat CBC showed white cell count 14, hematocrit 30. Options were discussed. I recommended to see Dr. Acuna as an outpatient. Nevertheless, she returned to the office today. She was not getting better last night. As a result, she has been hospitalized for all this workup. PAST MEDICAL HISTORY: 1. Chronic pain syndrome, off of pain pump. 2. Colon cancer resection of the colon by Dr. Gayle in 1998. 3. History of diastolic heart failure, paroxysmal atrial fibrillation, on Coumadin. 4. History of gastric erosions. 5. 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 6. Hyperlipidemia. 7. Hypertension. PAST SURGICAL HISTORY: Small-bowel resection due to adhesions, pain pump on the left side of the abdomen, status post C-spine surgery, removal of Bean catheter and PICC line, cholecystectomy, hysterectomy. MEDICATIONS: Cymbalta 60 daily, Coreg 6.25 p.o. b.i.d., Lanoxin 125 daily, Remeron 30 daily, Aldactone 25 daily, Percocet 5 t.i.d., Prilosec 20 p.o. b.i.d., Gattex 5 mg subcutaneous daily, Vytorin 10/40 daily gabapentin 300 p.o. b.i.d. Patient also taking Coumadin by Dr. Khoury, 3 mg, 1 tablet and 1/2 tablet on alternate days. Last Coumadin test 1.7 on 05/21/2019. ALLERGIES: Reported to codeine. HEALTH MAINTENANCE: Pneumococcal vaccine 13 was given in 2018. Flu vaccine declined. Last mammography 05/2018. DEXA scan in 02/2016. Colonoscopy in 03/[address] Acuna. REVIEW OF SYSTEMS: HEENT: No headache, no vision problem. No earache. No sore throat. Neck: No goiter. No lymphadenopathy. No bruit. Cardiopulmonary: No chest pain, shortness of breath, PND or orthopnea. His symptoms are improved. No swelling. GI: Upper abdominal pain and nausea. No constipation. No bleeding per rectum. : No history of hesitancy, frequency, dysuria. No neurological symptoms or weakness. PHYSICAL EXAMINATION: VITAL SIGNS: Temperature is 97.9 degrees, pulse 73. Vital signs are stable. GENERAL: Five feet tall, 155 pounds. HEENT: Very pale. No jaundice. TMs are normal. Nose and throat within normal limits. NECK: Supple. No lymphadenopathy. JVD is decreased. CHEST: Bilateral air entry. HEART: Sounds are regular. No murmurs. Belly is soft, nontender. Pain pump was placed on the left side. No signs of peritonitis. EXTREMITIES: No peripheral edema or cyanosis. NEUROLOGIC: No obvious neurological deficits. LABORATORY DATA: White cell count 10, hematocrit 31.5, platelets 474,000. Creatinine 1.4, calcium 8.7. Anemia profile is normal. Urinalysis is negative. ASSESSMENT AND PLAN: 1. A 79-year-old white female admitted to the hospital with the recent exacerbation of congestive heart failure, improving after Lasix with underlying paroxysmal atrial fibrillation. Electrocardiogram: Normal sinus, nothing acute. Last echocardiography was done 10/21/2017; normal left ventricular systolic function. Chest x-ray showed cardiomegaly. We will follow up on echocardiography. Currently on Coreg, Lanoxin, Coumadin and Aldactone. Lasix was given. We will hold the Lasix because the creatinine is 1.4. 2. Anemia, fluctuating. Get stool for testing. 3. History of colon resection. Last colonoscopy in [address] Acuna. 4. Short-bowel syndrome. History of total parenteral nutrition, which has been discontinued after starting Gattex injection. Side effects explained. Basically gallstones and colon polyps. The patient had a cholecystectomy done. 5. Upper abdominal discomfort. Follow up on CT scan of the abdomen and pelvis. 6. Hyperlipidemia, on Vytorin 10/40 daily. 7. 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 8. Insomnia, weight gain, on Remeron 30 mg at bedtime. 9. Acid reflux disease from previous erosions, on Prilosec 20 mg p.o. b.i.d. We will get stool testing and also a Gastroenterology consult. We will follow up on the pending labs. cc: Charles Singer MD MTDD
[2019-05-23] MEDS: PERCOCET-5 PO SCH ×4 (05:16→20:51)
--- NOTE | 2019-05-23 07:28 | Diag Imaging Result Doc PS360 ---
EXAM: CHEST-2 VIEWS INDICATION: hypoxia TECHNIQUE: 2 views COMPARISON: 02/26/2019 FINDINGS: There is evidence of prior granulomatous disease, stable. There is stable mild linear scarring in the right lower lung zone. There is no discrete pleural fluid collection or pneumothorax. The cardiomediastinal silhouette and central vasculature are grossly unremarkable. IMPRESSION: Stable mild scarring at the right lower lung zone. No definite acute chest pathology, otherwise. Electronically signed by Josiah Ayala 05/23/2019 7:26 AM
[2019-05-23] MEDS: LANOXIN PO SCH (08:58)
[2019-05-23] MEDS: NEURONTIN PO SCH ×2 (08:58→20:50)
[2019-05-23] MEDS: ALDACTONE PO SCH (08:59)
[2019-05-23] MEDS: CYMBALTA PO SCH (08:59)
[2019-05-23] MEDS: PRILOSEC PO SCH ×2 (08:59→20:51)
[2019-05-23] MEDS: COREG PO SCH ×2 (08:59→20:49)
[2019-05-23] MEDS: PATIENT'S OWN MED SUBQ SCH (09:00)
[2019-05-23] MEDS: ZOFRAN IV PRN ×2 (10:15→20:57)
[2019-05-23 10:27] LABS: INR 1.26
[2019-05-23 10:44] LABS: ALB/GLOB RATIO 0.9; ALBUMIN 3.1 g/dL (3.5-5.0); CALCIUM 8.3 mg/dL (8.8-10.2); CREATININE 1.1 mg/dL (0.5-0.9); POTASSIUM 3.7 mmol/L (3.5-5.1); TOTAL BILIRUBIN 0.38 mg/dL (0.20-1.00); TOTAL PROTEIN 6.5 g/dL (6.3-8.3)
[2019-05-23 11:16] LABS: BASO# 0.05 X1000 (0.0-0.2); BASO% 0.6 % (0.0-0.8); EOS# 0.05 X1000 (0.0-0.7); EOS% 0.6 % (0.0-10.0); HEMATOCRIT 27.9 % (37.0-47.0); HEMOGLOBIN 8.4 g/dL (12.0-16.0); IMM GRAN# 0.02 X1000 (0.0-0.04); IMM GRAN% 0.3 % (0.0-0.5); LYMPH# 1.44 X1000 (1.2-3.4); LYMPH% 18.5 % (20.5-51.1); MCHC 30.1 g/dL (33-37); MONO# 0.51 X1000 (0.11-0.59); MONO% 6.6 % (1.7-9.3); MPV 9.5 FL (7.4-10.4); NEUT# 5.71 X1000 (1.4-6.5); NEUT% 73.4 % (42.2-75.2); PLT 439 X1000 (130-400); RDW 13.1 % (11.5-14.5); WBC 7.78 X1000 (4.8-10.8)
[2019-05-23] MEDS: CYANOCOBALAMIN IM SCH (14:49)
--- NOTE | 2019-05-23 16:18 | ECHO REPORT ---
ORDER DATE: 05/22/2019 INTERPRETING PHYSICIAN: Dr. Aris Khoury. ECHOCARDIOGRAPHIC MEASUREMENTS: 1. Interventricular septum: 0.9 cm. 2. Left ventricular posterior wall: 0.9 cm. 3. Diastolic diameter: 3.6 cm. 4. Left atrium: 3.0 cm. 5. Aorta: 2.6 cm. SUMMARY OF THE 2-DIMENSIONAL IMAGIN. Aortic valve leaflets were trileaflet. 2. Normal right ventricular cavity size and function. 3. Normal left ventricular cavity size. 4. Estimated ejection fraction of 70%. 5. Mitral valve was normal. 6. Tricuspid valve was normal. 7. There is left atrial enlargement. 8. There is mild mitral regurgitation. 9. There is grade 1 diastolic dysfunction. 10. There is mild mitral regurgitation. 11. Mild tricuspid regurgitation. 12. Peak velocity across the tricuspid valve was 2.5 meters per second. 13. Pulmonary artery systolic pressure of 35 to 39 mmHg. 14. Peak velocity across the aortic valve less than 2 meters per second. 15. By Doppler studies, there is no aortic stenosis or regurgitation. 16. There is no pericardial effusion or obvious intracardiac mass or thrombus seen. 17. Anterior echo-free space suggestive of pericardial fat pad noted. cc: MD Charles Ibarra MD
--- NOTE | 2019-05-23 17:02 | ENDOSCOPY OPERATIVE NOTE ---
[facility] ENDOSCOPY OPERATIVE NOTE , EGD PROCEDURE REPORT EXAM DATE: 05/23/2019 PATIENT NAME: Ellen Anaya ATTENDING: Ryan Acuna MD MR#: [id number] REFERRING PHYSICIAN: : 1940 CASE#: [id number] STATUS: inpatient INDICATIONS: The patient is a 79 yr old female here for an EGD due to melena and acute post hemorrha gic anemia. PROCEDURE PERFORMED: EGD, diagnostic MEDICATIONS: Per Anesthesia CONSENT: The patient understands the risks and benefits of the procedure and understands that these r isks include, but are not limited to: sedation, allergic reaction, infection, perforation and/or bleeding. Alternative means of evaluation and treatment include, among others: physical exam, x-rays, and/or surgical intervention. The patient elects to proceed with this endoscopic procedure. DESCRIPTION OF PROCEDURE: During intra-op preparation period all mechanical and medical equipment was checked for proper function. Hand hygiene and appropriate measures for infection prevention was taken. After the risks, benefits and alternatives of the procedure were thoroughly explained, Informed consent was verified, confirmed and timeout was successfully executed by the treatment team. The patient was anesthetized with topical anesthesia and the PO40-q19 ([id number]) endoscope was introduced through the mouth and advanced to the second portion of the duoden um. Retroflexion was performed in the stomach and revealed no abnormalities. The gastroscope was then slowly withdraw n and removed. ESOPHAGUS: A 2 cm hiatal hernia was noted. The esophagus was otherwise normal. STOMACH: The mucosa of the stomach appeared normal. DUODENUM: The duodenal mucosa showed no abnormalities. ADVERSE EVENTS: There were no complications. IMPRESSIONS: 2 cm hiatal hernia RECOMMENDATIONS: 1. Resume pre-procedure medications 2. Start Full liquid diet for 1 Day(s) 3. Return to floor when standard parameters are met Ryan Acuna MD eSigned: Ryan Acuna MD 05/23/2019 5:01 PM CPT CODES: 42246 Upper gastrointestinal endoscopy including esophagus, stomach, and either the du odenum and/or jejunum as appropriate; diagnostic, with or without collection of specimen(s) by brushing or washing (separate procedure) ICD CODES: 578.1 Blood in stool 285.1 Acute posthemorrhagic anemia 553.3 Diaphragmatic hernia without mention of obstruction or gangrene The ICD and CPT codes recommended by this software are interpretations from the data that the [facility] staff has captured with the software. The verification of the translation of this report to the ICD and CPT co armen and modifiers is the sole responsibility of the health care institution and practicing physician where this report was generated. [employer] will not be held responsible for the validity of the ICD and CPT codes i ncluded on this report. AMA assumes no liability for data contained or not contained herein. CPT is a registered tra demark of the [employer]. PATIENT NAME: Ellen Anaya MR#: [id number]
[2019-05-23] MEDS: ZETIA PO SCH (20:50)
[2019-05-23] MEDS: ZOCOR PO SCH (20:51)
[2019-05-23] MEDS: REMERON PO SCH (20:51)
--- NOTE | 2019-05-23 22:07 | PROGRESS NOTE ---
DATE: 05/23/2019 SUBJECTIVE: The patient is going for EGD today for upper abdominal evaluation. CT findings discussed. Hemoccult negative. B12 is on the low side. Follow up on echocardiography for CHF and her hemoglobin is fluctuating. I appreciated Dr. Acuna's input. PHYSICAL EXAMINATION: Vital signs: Temperature is 98 degrees, pulse 75. Vitals are stable. HEENT: Slightly pale. No jaundice. Chest: Bilateral air entry. Heart: Sounds are regular. Abdomen: Belly is soft, nontender. No obvious deficits. INVESTIGATIONS: CBC: White cell count 7.7, hematocrit 27.9, platelets 439,000. PT/INR is normal. SMA 7 is normal. Creatinine 1.1, glucose 219. Iron is 24. Ferritin is normal. Troponin is normal. Lipase is slightly elevated. B12 is 187. Folate level is normal. TSH is normal. ASSESSMENT AND PLAN: 1. Diastolic heart failure. Stable after Lasix. 2. Follow up on echocardiography. 3. Paroxysmal atrial fibrillation, off Coumadin. 4. Upper abdominal pain. Follow up on esophagogastroduodenoscopy. Last colonoscopy is negative. 5. Anemia due to B12 deficiency. Will initiate B12 shots. 6. 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 Follow up on CA19-9. We will discuss with Dr. Acuna. Continue present treatment. LEVEL OF DOCUMENTATION: 25 minutes. cc: Charles Singer MD
[2019-05-24] MEDS: TYLENOL PO PRN ×2 (00:41→07:48)
[2019-05-24] MEDS: ZOFRAN IV PRN (07:48)
[2019-05-24] MEDS: CYMBALTA PO SCH (09:49)
[2019-05-24] MEDS: NEURONTIN PO SCH ×2 (09:49→21:29)
[2019-05-24] MEDS: ALDACTONE PO SCH (09:49)
[2019-05-24] MEDS: CYANOCOBALAMIN IM SCH (09:49)
[2019-05-24] MEDS: PRILOSEC PO SCH ×2 (09:49→20:30)
[2019-05-24] MEDS: LANOXIN PO SCH (09:49)
[2019-05-24] MEDS: PATIENT'S OWN MED SUBQ SCH (09:50)
[2019-05-24] MEDS: PERCOCET-5 PO SCH ×3 (09:50→20:29)
[2019-05-24] MEDS: COREG PO SCH ×2 (09:51→20:30)
--- NOTE | 2019-05-24 10:08 | PROGRESS NOTE ---
DATE: 05/24/2019 SUBJECTIVE: The patient is feeling headache, nausea, upper abdominal pain. Now hemoglobin dropped again as low as 24. It is very fluctuating based on her volume status and B12 on the low side. OBJECTIVE: Vital signs: Temperature is 98 degrees, pulse 79, vitals are stable, 94% on room air. HEENT: Pale. Neck: Supple. Chest: Clear. Heart: Sounds are regular. Abdomen: Belly is soft, nontender. Neurologic: No obvious deficits. INVESTIGATIONS: B12 on the low side. ProBNP 215. ASSESSMENT AND PLAN: 1. Diastolic heart failure improving. Echo with excellent left ventricular function. 2. Paroxysmal atrial fibrillation, on Coumadin. Unable to buy the Eliquis. We will start on Coumadin 1.5 mg daily. INR is 1.2. 3. Anemia, probably multifactorial. No signs of active gastrointestinal bleeding noted and EGD findings discussed and we will transfuse a unit of packed RBC followed by Deborah. 4. B12 deficiency, on B12 replacement. 5. CT scan, apparently cystic neoplasm of the pancreatic head which is 2.8 cm. Mild dilatation of distal pancreatic duct. This cystic mass was 14 mm before and now is 2.8 cm. Follow up on CA 19-9. Never the less, patient needs endoscopic ultrasound. I spoke to Dr. Josiah Carlson. He is going to follow up next week. I will make the arrangements to see him as an outpatient at [facility] in [place]. LEVEL OF DOCUMENTATION: 25 minutes. cc: Charles Singer MD MTDD
[2019-05-24] MEDS ORDERED: LASIX IV PRN (10:43)
[2019-05-24] MEDS ORDERED: NS 500 ML IV SCH (12:45)
[2019-05-24] MEDS ORDERED: NS 500 ML IV ONE (14:48)
--- NOTE | 2019-05-24 20:06 | GASTROENTEROLOGY PROGRESS NOTE ---
DATE: 05/24/2019 The patient was resting comfortably. Apparently, she is scheduled to be discharged tomorrow. She reports no GI symptoms. EGD done yesterday did not show any pathology in her upper GI that would explain her anemia. I would continue her on proton pump inhibitor and she was advised to follow up with me in the office after discharge. Depending on her progress, further plans will be made. The cystic lesion seen in the pancreatic head needs further evaluation. Apparently, she has scheduled appointment with Dr. Owens at [place]. Good thing was her CA-19-9 came back normal. Again, depending on Dr. Josiah Owens's recommendations, further plans will be made. cc: MD Charles Humphreys MD
[2019-05-24] MEDS: ZOCOR PO SCH (20:29)
[2019-05-24] MEDS: ZETIA PO SCH (20:29)
[2019-05-24] MEDS: REMERON PO SCH (20:30)
[2019-05-24] MEDS ORDERED: COUMADIN PO SCH (21:00)
[2019-05-25 08:03] VITALS: BP 122/38
[2019-05-25] MEDS ORDERED: FLU VACCINE IM ONE (08:14)
[2019-05-25] MEDS: ALDACTONE PO SCH (09:43)
[2019-05-25] MEDS: PRILOSEC PO SCH (09:43)
[2019-05-25] MEDS: LANOXIN PO SCH (09:43)
[2019-05-25] MEDS: PERCOCET-5 PO SCH (09:43)
[2019-05-25] MEDS: CYMBALTA PO SCH (09:43)
[2019-05-25] MEDS: NEURONTIN PO SCH (09:43)
[2019-05-25] MEDS: COREG PO SCH (09:44)
[2019-05-25] MEDS: CYANOCOBALAMIN IM SCH (09:44)
--- NOTE | 2019-05-25 19:26 | GASTROENTEROLOGY PROGRESS NOTE ---
DATE: 05/25/2019 SUBJECTIVE: Patient is sitting up in a chair in her room. She is dressed. She has discharge orders. She denies complaints today. She had an EGD on 05/23/2019, indications for anemia and GI bleed. Findings showed a 2 cm hiatal hernia, otherwise normal stomach, normal esophagus, normal duodenum. There was no evidence of active GI bleeding. Patient's hemoglobin and hematocrit last done on 05/23/2019 were 8.4 [address] I believe Dr. Singer has referred Ms. Anaya to [facility] for evaluation of a cystic lesion seen in the pancreatic head. Her CA-19-9 is normal. OBJECTIVE: Vital Signs: Temperature 98.2 degrees, pulse 67, respirations 18, blood pressure 122/38. ASSESSMENT AND PLAN: 1. Anemia. 2. Abdominal pain and recent melena, with normal esophagogastroduodenoscopy. Continue Prilosec daily. Follow antireflux measures. Avoid nonsteroidal anti-inflammatory medications. 3. Abnormal CT scan showing possible cystic neoplasm of the pancreatic head. I believe patient will be referred to [facility] for further evaluation. 4. There has been no evidence of active gastrointestinal bleeding by esophagogastroduodenoscopy. Recommend patient follow up with us in the office after discharge. Continue her proton pump inhibitor. Further plans will be made as needed. I have discussed this case with Dr. Acuna. Dictated by MK Castaneda for Ryan Acuna MD cc: MK Monson MD Jagan Reddy, MD
--- NOTE | 2019-05-27 16:06 | DISCHARGE SUMMARY ---
ADMISSION DATE: 05/22/2019 DISCHARGE DATE: 05/25/2019 DISCHARGING DIAGNOSES: 1. Acute decompensated diastolic heart failure. 2. Paroxysmal atrial fibrillation on Coumadin. 3. History of Coumadin toxicity. 4. Short-bowel syndrome on Gattex. 5. Anemia due to chronic disease, iron deficiency anemia/B12 deficiency. 6. Mucinous cyst in the head of the pancreas, 2.8 cm, increasing in size from 1.4 cm-CA-19-9 is normal. 7. Chronic pain syndrome. 8. History of colon cancer in 1998, followed by surveillance with Dr. Acuna. 9. Hyperlipidemia. 10. Hypertension. 11. Reactive depression. 12. Hiatal hernia with acid reflux disease. CONSULTS: Dr. Acuna. PROCEDURES: 1. EGD: 2 cm with hiatal hernia. No signs of active bleeding noted. 2. Transfusion of 1 unit of packed RBC. 3. Echocardiography report: Normal LV systolic function, EF 70%. Mild pulmonary hypertension. No pericardial tamponade or effusion noted. 4. CT scan of the abdomen and pelvis: Apparent cystic neoplasm of the pancreatic head, constipation. 5. Chest x-ray: Stable cardiomegaly. Prior C-spine surgery changes noted. BRIEF HISTORY: Please see the H and P that was done on the day of admission, 05/22/2019. In brief, she is a 79-year-old white female. Initially was seen in my office with swelling of legs, CHF symptoms, cardiomegaly, increased pulmonary vasculature, and fluid in the right major fissure. The patient was given Lasix. At that time she was very pale. Hemoglobin was 7, hematocrit 24. With Lasix, her symptoms are much improved. She continued to have some abdominal pain, nausea. As a result, the patient was admitted to the hospital for shortness of breath, anemia, abdominal pain workup. HOSPITAL COURSE: 1. As a part of the CHF, she has remained in atrial fibrillation. Echo showed normal LV systolic function. Continued to control the blood pressure, and Coumadin was stopped at the time of admission. 2. Anemia. Slightly iron deficiency anemia due to short-bowel syndrome as well as B12 at 187. The patient was given a unit of packed red blood cells as well as B12 injections. She needs to continue B12 shots every day for 5 days and once a month. 3. Upper abdominal pain. EGD was done by Dr. Acuna. It showed a 2 cm hiatal hernia without any active signs of bleeding. Hemoccult stools were negative. Prior colonoscopy in [address] scan showed 2.8 cm mucinous cystic adenoma increasing in size. Nevertheless, CA-19-9 is normal. I spoke to Josiah Carlson. He is going to see as an outpatient for the evaluation of this cystic mass in the head of the pancreas. Findings were discussed with the patient. I appreciate Dr. Acuna's consult. LABS: White cell count 7, hematocrit 27.9, platelet count 439,000. PT 16, INR 1.26. Sodium 137, potassium 3.7, chloride 95, BUN 22, creatinine 1.4, glucose 219. Iron is slightly low. B12 187. CA-19-9 is 8. The patient was discharged home with the following instructions: 1. Cymbalta 60 daily. 2. Coreg 6.25 p.o. b.i.d. 3. Lanoxin 125 mcg daily. 4. Remeron 30 at bedtime. 5. Aldactone 25 daily. 6. Percocet 1 tablet t.i.d. as per the pain specialist. 7. Prilosec 20 p.o. b.i.d. 8. Gattex 5 mg subcutaneous daily. 9. Gabapentin 300 b.i.d. 10. Vytorin 10/40 daily. The patient was given influenza vaccine 05/25/2019. Pneumococcal vaccine 23 was given 05/25/2019. Follow up in my office next week. We will make the arrangements to Josiah Carlson at [facility] for the evaluation of pancreas. cc: Charles Singer MD
== END 2019-05-25 10:12 | disposition home or self-care (01) | DRG 292 ==
LOC: DIRADM 10:17 → 3N 13:44
PROVIDERS: ADMIT Internal Medicine; ATTEND Internal Medicine